=== PATIENT | female | born 1975 | race Caucasian/White ===

== ENCOUNTER 2020-09-05 02:43 | Inpatient (IN) ==
[2020-09-05] MEDS ORDERED: Naloxone 0.4 MG/ML INJ IVP PRN (04:17)
[2020-09-05] MEDS ORDERED: Dextrose Gel 15 GM/37.5 ML TUBE PO PRN ×2 (04:19)
[2020-09-05] MEDS ORDERED: *HR* Dextrose 50 % in Water (Vial) 50 ML VIAL IVP PRN (04:19)
[2020-09-05] MEDS ORDERED: D5% in Water 1,000 ML IVC PRN (04:19)
[2020-09-05] MEDS ORDERED: *HR* Heparin 5,000 UNIT/ML VIAL IVP PRN ×2 (06:09)
[2020-09-05] MEDS ORDERED: Heparin 25,000UNIT/250ML 1/2NS 25,000 UNIT/250 ML IV.SOLN IVC SCH (06:15)
[2020-09-05] MEDS: Insulin LISPRO 300 UNITS/3 ML VIAL SQ SCH ×3 (06:49→18:38)
[2020-09-05] MEDS ORDERED: Perflutren Lipid Microsphere 1.3 ML in 0.9 % Sodium Chloride 8.7 ML IVP PRN (07:03)
[2020-09-05] MEDS ORDERED: Heparin 1,000 UNITS/500 mL 500 ML ONE (09:43)
[2020-09-05] MEDS ORDERED: *HR* Heparin 10,000 UNIT/10 ML VIAL ONE (09:43)
[2020-09-05] MEDS ORDERED: ISOVUE-370 200 ML INFUS..BTL ONE ×2 (09:43→10:48)
[2020-09-05] MEDS ORDERED: 0.9 % Sodium Chloride 1,000 ML ONE (09:43)
[2020-09-05] MEDS ORDERED: Nitroglycerin 1,000 MCG/10 ML VIAL IV ONE (09:44)
[2020-09-05] MEDS ORDERED: Aspirin Enteric Coated 81 MG Tablet PO SCH (09:45)
[2020-09-05] MEDS ORDERED: *HR* Midazolam HCl 2 MG/2 ML VIAL ONE ×2 (10:06→11:09)
[2020-09-05] MEDS ORDERED: *HR* FentaNYL (PF) 100 MCG/2 ML VIAL ONE ×2 (10:07→11:10)
[2020-09-05] MEDS ORDERED: Morphine Sulfate 2 MG/ML SYRINGE ONE (11:32)
[2020-09-05] MEDS ORDERED: *HR* HYDROcodone/Acet 5/325 mg TABLET PO PRN (11:54)
[2020-09-05] MEDS ORDERED: Acetaminophen 325 MG TABLET PO PRN (11:54)
[2020-09-05] MEDS ORDERED: 0.9 % Sodium Chloride 1,000 ML IVC SCH (12:00)
[2020-09-05] MEDS: Morphine Sulfate 2 MG/ML SYRINGE IVP PRN ×2 (12:27→17:13)
[2020-09-05] MEDS ORDERED: Oxymetazoline Nasal SPRAY BOTTLE NS PRN (12:33)
[2020-09-05] MEDS ORDERED: Ondansetron 4 MG/2 ML VIAL ONE (13:03)
[2020-09-05] MEDS: Ondansetron 4 MG/2 ML VIAL IVP PRN ×2 (13:05→17:12)
[2020-09-05 13:22] LABS: Basophils % 0.4 %; Eosinophils % 0.4 %; Hematocrit 37.7 % (35.3-44.9); Hemoglobin 12.6 g/dL (11.5-15.4); Immature Granulocytes % 0.4 % (0-4); Lymphocytes # 1.5 K/mcL (0.6-4.6); Lymphocytes % 20.4 %; Mean Corpuscular HGB Conc 33.4 g/dL (31.6-35.5); Mean Corpuscular Volume 92.6 fL (83.0-100.0); Mean Platelet Volume 9.9 fL (9.4-12.4); Monocytes # 0.6 K/mcL (0.0-1.3); Monocytes % 8.5 %; Neutrophils # 5.2 K/mcL (1.6-8.9); Platelet Count 169 K/mcL (140-400); Red Blood Count 4.07 M/mcL (3.82-4.97); Red Cell Distribution Width 12.8 % (11.5-14.5); Segmented Neutrophils % 69.9 %; White Blood Count 7.4 K/mcL (4.3-11.1)
[2020-09-05 13:40] LABS: Acetaminophen < 10 mcg/mL (10-20); Salicylate < 2.5 mg/dL (15.0-30.0)
[2020-09-05 13:41] LABS: Alanine Aminotransferase 62 Units/L (7-52); Albumin 3.7 g/dL (3.5-5.7); Albumin/Globulin Ratio 1.5 (1.1-2.2); Alkaline Phosphatase 59 Units/L (34-104); Aspartate Amino Transferase 89 Units/L (13-39); BUN/Creatinine Ratio 23 (6-26); Bilirubin,Total 1.2 mg/dL (0.3-1.0); Blood Urea Nitrogen 14 mg/dL (6-20); Calcium 8.2 mg/dL (8.6-10.3); Carbon Dioxide 17 mEq/L (23-29); Chloride 109 mEq/L (98-107); Globulin 2.4 g/dL (2.4-3.5); Glucose 179 mg/dL (70-105); Magnesium 1.8 mg/dL (1.6-2.6); Osmolality,Calculated 291 (280-300); Phosphorous 2.1 mg/dL (2.7-4.5); Potassium 3.9 mEq/L (3.5-5.1); Sodium 138 mEq/L (136-145); Total Protein 6.1 g/dL (6.4-8.9); eGFR For African Americans > 60 (> 60); eGFR For Non-African Americans > 60 (> 60)
[2020-09-05 13:43] LABS: Chol/HDL Ratio 4.5 (0-4.9)
[2020-09-05 14:04] LABS: Estimated Average Glucose 243 mg/dl
[2020-09-05 18:40] VITALS: BP 108/81
== END 2020-09-05 19:30 | disposition short-term general hospital (02) | DRG 191 ==
LOC: 2ANU → SUATTDRO 03:46 → ICNU 12:03
PROVIDERS: ADMIT Family Medicine; ATTEND Internal Medicine